=== PATIENT | male | born 1955 | race Caucasian/White ===

== ENCOUNTER 2021-05-17 16:51 | Observation (INO) ==
[2021-05-17] MEDS ORDERED: Aspirin 325 MG TABLET PO ONE (17:59)
[2021-05-17] MEDS ORDERED: Perflutren Lipid Microsphere 1.3 ML in 0.9 % Sodium Chloride 8.7 ML IVP PRN (20:57)
[2021-05-17] MEDS ORDERED: Naloxone 0.4 MG/ML INJ IVP PRN (20:58)
[2021-05-17] MEDS ORDERED: Acetaminophen 325 MG TABLET PO PRN (20:58)
[2021-05-17] MEDS ORDERED: tiZANidine 4 MG TABLET PO SCH (21:00)
[2021-05-17] MEDS ORDERED: LACTASE 3000 UNIT PO SCH (21:00)
[2021-05-17] MEDS ORDERED: Nitroglycerin 0.4 MG TAB.SUBL SL PRN (21:32)
[2021-05-17] MEDS ORDERED: Morphine Sulfate 2 MG/ML SYRINGE IVP ONE (21:33)
[2021-05-17] MEDS ORDERED: Morphine Sulfate 2 MG/ML SYRINGE ONE (21:55)
[2021-05-17] MEDS ORDERED: *HR* Heparin 5,000 UNIT/ML VIAL ONE (21:55)
[2021-05-17] MEDS ORDERED: tiZANidine 4 MG TABLET ONE (21:56)
[2021-05-17 21:58] LABS: Basophils # 0.1 K/mcL (0.0-0.2); Basophils % 0.7 %; Eosinophils # 0.2 K/mcL (0.0-0.6); Eosinophils % 2.4 %; Hematocrit 38.4 % (37.5-50.1); Hemoglobin 12.4 g/dL (12.9-16.9); Immature Granulocytes % 0.6 % (0-4); Lymphocytes # 2.5 K/mcL (0.6-4.6); Lymphocytes % 27.3 %; Mean Corpuscular HGB Conc 32.3 g/dL (31.6-35.5); Mean Corpuscular Hemoglobin 30.2 pg (28.0-33.3); Mean Corpuscular Volume 93.7 fL (83.0-100.0); Mean Platelet Volume 11.4 fL (9.4-12.4); Monocytes # 0.5 K/mcL (0.0-1.3); Monocytes % 5.8 %; Neutrophils # 5.8 K/mcL (1.6-8.9); Platelet Count 188 K/mcL (140-400); Segmented Neutrophils % 63.2 %; White Blood Count 9.1 K/mcL (4.3-11.1)
[2021-05-17] MEDS: *HR* Heparin 5,000 UNIT/ML VIAL SQ SCH (22:00)
[2021-05-17 22:02] LABS: Estimated Average Glucose 148 mg/dl; Hemoglobin A1C 6.8 %
[2021-05-17 22:05] LABS: INR 1.2; Prothrombin Time 14.1 Seconds (9.4-12.1)
[2021-05-17] MEDS ORDERED: Prochlorperazine 10 MG/2 ML VIAL IVP PRN (22:07)
[2021-05-17 22:20] LABS: Alanine Aminotransferase 66 Units/L (7-52); Albumin 3.7 g/dL (3.5-5.7); Albumin/Globulin Ratio 1.3 (1.1-2.2); Alkaline Phosphatase 65 Units/L (34-104); Aspartate Amino Transferase 45 Units/L (13-39); BUN/Creatinine Ratio 24 (6-26); Bilirubin,Total 0.3 mg/dL (0.3-1.0); Blood Urea Nitrogen 23 mg/dL (8-23); Calcium 8.7 mg/dL (8.6-10.3); Carbon Dioxide 22 mEq/L (23-29); Chloride 106 mEq/L (98-107); Chol/HDL Ratio 3.7 (0-4.9); Cholesterol 117 mg/dL (< 200); Globulin 2.8 g/dL (2.4-3.5); Glucose 219 mg/dL (70-105); HDL Cholesterol 32 mg/dL (40-59); LDL Cholesterol,Calculated 45 mg/dL (< 100); Magnesium 1.8 mg/dL (1.6-2.6); Osmolality,Calculated 300 (280-300); Potassium 3.9 mEq/L (3.5-5.1); Sodium 140 mEq/L (136-145); Total Protein 6.5 g/dL (6.4-8.9); Triglycerides 198 mg/dL (< 150); Troponin I < 0.03 ng/mL (< 0.04); eGFR For African Americans > 60 (> 60); eGFR For Non-African Americans > 60 (> 60)
[2021-05-17 22:46] LABS: Hepatitis B Surface Antigen Nonreactive (Nonreactive)
[2021-05-17 23:15] LABS: Hepatitis B Core IgM Nonreactive (Nonreactive)
[2021-05-17 23:17] LABS: Hepatitis A Antibody IgM Nonreactive (Nonreactive)
[2021-05-18 02:23] LABS: Hepatitis C Virus Antibody Reactive (Nonreactive)
[2021-05-18] MEDS: *HR* Heparin 5,000 UNIT/ML VIAL SQ SCH ×2 (04:54→09:21)
[2021-05-18] MEDS ORDERED: Regadenoson 0.4 MG/5 ML SYRINGE IVP ONE (06:13)
[2021-05-18] MEDS ORDERED: Aspirin Enteric Coated 81 MG Tablet PO SCH (09:00)
[2021-05-18] MEDS ORDERED: amLODIPine 5 MG TABLET PO SCH (09:00)
[2021-05-18] MEDS ORDERED: carvediloL 25 MG TABLET PO SCH (09:00)
[2021-05-18] MEDS ORDERED: Lactobacillus 1 EACH CAP.SPRINK PO SCH (09:00)
[2021-05-18] MEDS ORDERED: Finasteride 5 MG TABLET PO SCH (09:00)
[2021-05-18 10:00] VITALS: BP 149/73
[2021-05-18 10:21] LABS: Hematocrit 42.3 % (37.5-50.1); Hemoglobin 13.4 g/dL (12.9-16.9); Mean Corpuscular HGB Conc 31.7 g/dL (31.6-35.5); Mean Corpuscular Hemoglobin 30.2 pg (28.0-33.3); Mean Corpuscular Volume 95.5 fL (83.0-100.0); Mean Platelet Volume 11.3 fL (9.4-12.4); Platelet Count 199 K/mcL (140-400); Red Blood Count 4.43 M/mcL (4.19-5.50); Red Cell Distribution Width 14.1 % (11.5-14.5); White Blood Count 10.6 K/mcL (4.3-11.1)
[2021-05-18 10:43] LABS: BUN/Creatinine Ratio 23 (6-26); Blood Urea Nitrogen 21 mg/dL (8-23); Calcium 8.8 mg/dL (8.6-10.3); Carbon Dioxide 22 mEq/L (23-29); Chloride 107 mEq/L (98-107); Glucose 222 mg/dL (70-105); Osmolality,Calculated 294 (280-300); Sodium 137 mEq/L (136-145); eGFR For African Americans > 60 (> 60); eGFR For Non-African Americans > 60 (> 60)
[2021-05-18] MEDS ORDERED: risperiDONE 1 MG TABLET PO SCH (21:00)
[2021-05-18] MEDS ORDERED: traZODone 50 MG TABLET PO SCH (21:00)
== END 2021-05-18 12:53 | disposition home or self-care (01) ==
LOC: EMEROOARM 16:51 → 3BNU 16:51 → SUATTDRO 18:28 → 3BNU 19:54
PROVIDERS: ADMIT Internal Medicine; ATTEND Internal Medicine